=== PATIENT | female | born 1990 | race African-American/Black ===

== ENCOUNTER 2019-10-26 18:21 | Emergency (ER) | payer MEDICAID ==
[~2019-10-26] VITALS: Ht 165.1 cm; Wt 65.0 kg
[2019-10-26] MEDS ORDERED: ONDANSETRON 4MG ODT PO ONE (21:00)
[2019-10-26] MEDS ORDERED: KETOROLAC 30MG/ML VIAL IM ONE (21:00)
[2019-10-26] MEDS ORDERED: CEFTRIAXONE SODIUM 1 G/VIAL IM ONE (21:00)
[2019-10-26] MEDS ORDERED: MORPHINE SULFATE 10 MG/ML CPJ IM ONE (21:00)
[2019-10-26] MEDS ORDERED: LIDOCAINE HCL 1% 20ML VIAL (Pyxis) INJ INFIL ONE (21:00)
[2019-10-26 21:05] LABS: CLARITY URINE CLOUDY (CLEAR); COLOR URINE YELLOW (YELLOW); KETONES URINE 1+ (NEGATIVE); LEUKOCYTE ESTERASE URINE 3+ (NEGATIVE); NITRITE URINE NEGATIVE (NEGATIVE); OCCULT BLOOD URINE 3+ (NEGATIVE); PH URINE 6.5 (4.5-8.0); PROTEIN URINE 3+ (NEGATIVE); SPECIFIC GRAVITY URINE 1.021 (1.005-1.030)
[2019-10-26 22:06] VITALS: BP 122/88
== END 2019-10-26 22:00 | disposition home or self-care (01) ==
LOC: ER 18:21
DX: N12 Tubulo-interstitial nephritis, not specified as acute or chronic (principal); Z98.890 Other specified postprocedural states
CPT/HCPCS: 81003; 87077; 87086; 87186; 93005; 96372; 99284; J0696; J1885; J2270; J3490; Q0162